=== PATIENT | male | born 1970 | race Caucasian/White ===

== ENCOUNTER 2019-09-03 23:21 | Emergency (ER) | payer OTHER ==
[~2019-09-03] VITALS: Ht 180.3 cm; Wt 91.2 kg
[2019-09-03] MEDS ORDERED: ONDANSETRON 2MG/ML, 2ML ONE (23:50)
[2019-09-03] MEDS ORDERED: MORPHINE SULFATE 4 MG/ML, 1ML ONE (23:50)
[2019-09-04] MEDS ORDERED: SODIUM CHLORIDE 0.9% 1,000ML IVBOLUS ONE
[2019-09-04] MEDS ORDERED: ONDANSETRON 2MG/ML, 2ML IVPush ONE
[2019-09-04] MEDS ORDERED: MORPHINE SULFATE 4 MG/ML, 1ML IVPush PRN
[2019-09-04 00:09] LABS: BASOPHILS # (AUTO) 0.03 x10^3/uL (0-0.1); BASOPHILS % (AUTO) 0 % (0-1); EOSINOPHILS # (AUTO) 0.19 x10^3/uL (0-0.4); EOSINOPHILS % (AUTO) 2 % (1-7); LYMPHOCYTES # (AUTO) 3.61 x10^3/uL (1-3.4); LYMPHOCYTES % (AUTO) 42 % (22-44); MD NO; MEAN CORPUSCULAR HGB CONC 33.7 g/dL (33.2-36.2); MEAN PLATELET VOLUME 7.7 fL (7.4-10.4); MONOCYTES # (AUTO) 0.68 x10^3/uL (0.2-0.8); MONOCYTES % (AUTO) 8 % (2-9); NEUTROPHILS # (AUTO) 4.19 x10^3/uL (1.8-6.8); NEUTROPHILS % (AUTO) 48 % (42-75); PLATELET COUNT 275 x10^3/uL (130-400); RED BLOOD COUNT 4.89 x10^6/uL (4.38-5.82); RED CELL DISTRIBUTION WIDTH 12.6 % (9.4-14.8)
[2019-09-04 00:18] LABS: ALANINE AMINOTRANSFERASE 18 U/L (12-78); ALBUMIN 4.1 g/dL (3.4-5.0); ANION GAP 6 mmol/L (5-15); CALCIUM 9.4 mg/dL (8.5-10.1); CHLORIDE 106 mmol/L (98-107)
[2019-09-04 00:20] LABS: ALKALINE PHOSPHATASE 54 U/L (45-117); BILIRUBIN,TOTAL 0.9 mg/dL (0.2-1.0); CREATININE 1.23 mg/dL (0.7-1.3)
[2019-09-04] MEDS ORDERED: PLEASE ENTER ALLERGIES MC SCH (00:30)
--- NOTE | 2019-09-04 00:45 | NUR ---
PT TO CT AT THIS TIME.
[2019-09-04] MEDS ORDERED: OMNIPAQUE 350 MG/ML, 100ML BOTTLE ONE (00:57)
--- NOTE | 2019-09-04 01:09 | NUR ---
PT RETURNED FROM CT, URINE SAMPLE COLLECTED AND SENT. PT DENIES ANY NEEDS. CALL LIGHT IN REACH.
[2019-09-04 01:18] LABS: MICROSCOPIC AUTO
[2019-09-04] MEDS ORDERED: KETOROLAC 30 MG/1 ML IVPush ONE (01:30)
[2019-09-04] MEDS ORDERED: KETOROLAC 30 MG/1 ML ONE (01:32)
--- NOTE | 2019-09-04 01:37 | NUR ---
PT UPDATED ON PLAN OF CARE. VERBALIZES UNDERSTANDING. MEDICATED PER MAR. DENIES ANY FURTHER QUESTIONS, OR CONCERNS. CALL LIGHT IN REACH.
--- NOTE | 2019-09-04 01:51 | NUR ---
Report received from JEANNIE Tran. This RN to assume care. Patient up for recheck.
[2019-09-04 02:00] VITALS: BP 127/86
--- NOTE | 2019-09-04 02:12 | NUR ---
Discharge instructions given. All questions and concerns addressed. Patient ambulatory with a steady gait. Belongings with patient.
== END 2019-09-04 02:14 | disposition home or self-care (01) ==
LOC: ED 09-04 01:13
DX: N13.2 Hydronephrosis with renal and ureteral calculous obstruction (principal); N23 Unspecified renal colic; M19.90 Unspecified osteoarthritis, unspecified site
CPT/HCPCS: 36415; 74177; 80053; 81001; 83690; 85025; 93005; 96374; 96375; 99285; J1885; J2270; J2405; J7030; Q9967